=== PATIENT | male | born 1980 | race African-American/Black ===

== ENCOUNTER 2017-09-06 09:17 | Emergency (ER) | payer OTHER ==
[~2017-09-06] VITALS: Ht 185.4 cm; Wt 81.7 kg
[~2017-09-06 09:17] MED LIST: ANALPRAM E 2.51 EAC1 RC; FISH OIL 1,001000 M2 PO; FLEXERIL PO; IBUPROFEN 800800 M1 PO; NOHOMEMEDICATIONS
[2017-09-06 09:53] LABS: INFLUENZA A ANTIGEN None Detected (None Detect); INFLUENZA B ANTIGEN None Detected (None Detect)
[2017-09-06] MEDS ORDERED: TRAMADOL 50 MG50 MG PO (09:59)
[2017-09-06] MEDS ORDERED: ZOFRAN4 MG PO (09:59)
[2017-09-06] MEDS ORDERED: TESSALON PERLE100 MG PO (09:59)
[2017-09-06 10:17] VITALS: BP 117/74
== END 2017-09-06 10:18 | disposition home or self-care (01) ==
LOC: M.ERS 09:17
PROVIDERS: Emergency Medicine
DX: B34.9 Viral infection, unspecified (principal); F17.210 Nicotine dependence, cigarettes, uncomplicated; Z88.0 Allergy status to penicillin

== ENCOUNTER 2019-08-08 11:45 | Emergency (ER) | payer OTHER ==
[~2019-08-08] VITALS: Ht 185.4 cm; Wt 88.5 kg
[~2019-08-08 11:45] MED LIST changes: +TESSALON PERLE100 MG PO; +TRAMADOL 50 MG50 MG PO; +ZOFRAN4 MG PO
[2019-08-08] MEDS ORDERED: LAMICTAL 25 MG25 MG PO (12:02)
[2019-08-08 12:48] LABS: ABSOLUTE BASOPHILS 0.1 thou/uL (0.0-0.2); ABSOLUTE EOSINOPHILS 0.1 thou/uL (0.0-0.7); ABSOLUTE MONOCYTES 0.5 thou/uL (0.0-1.2); ABSOLUTE NEUTROPHILS 1.6 thou/uL (1.6-8.1); BASOPHILS 1.3 %; EOSINOPHILS 3.3 %; HEMATOCRIT 46.7 % (42.0-52.0); HEMOGLOBIN 15.8 gm/dL (14.0-18.0); LYMPHOCYTES 46.2 %; MCH 30.2 pg (26.0-34.0); MCHC 33.9 g/dL (28.0-37.0); MCV 89.1 fL (80.0-100.0); MONOCYTES 11.4 %; MPV 7.4 fl. (7.2-11.1); NUCLEATED RBCS 0 /100WBC; PLATELET COUNT* 222 thou/uL (150-400); POLYS 37.8 %; RBC 5.25 mil/uL (4.50-6.00); RDW-CV 13.8 % (10.5-14.5); WBC 4.3 thou/uL (4.0-11.0)
[2019-08-08 12:59] LABS: CALCIUM 8.5 mg/dL (8.5-10.1); CREATININE 1.1 mg/dL (0.6-1.3); POTASSIUM 3.8 mmol/L (3.5-5.1)
[2019-08-08 13:03] LABS: ALBUMIN 3.7 g/dL (3.4-5.0); TOTAL BILIRUBIN 0.3 mg/dL (<0.1-1.0)
[2019-08-08 14:19] VITALS: BP 139/71
--- NOTE | 2019-08-08 15:03 | EKG ---
[place] [address] ELECTROCARDIOGRAM REPORT Name: DAMIEN MOTT [id number] Admission: 08/08/19 Attend Phys: Discharge: 08/08/19 Date of : 80 Report #: [id number] THIS REPORT FOR: //name// [facility] ED Test Date: 2019-08-08 Test Time: 12:41:59 Pat Name: DAMIEN MOTT Department: Room: Gender: M Health Information Director: SULEMA : 1980 Requested By: Silvestre Cortes Order Number: [id number] MD: Donnie Harris Measurements Intervals [place] Rate: 59 P: 18 CT: 145 QRS: 27 QRSD: 107 T: 60 QT: 399 QTc: 396 Interpretive Statements Sinus rhythm septal q waves noted ST elev, probable normal early repol pattern Compared to ECG 09/22/2012 12:34:31 no change Electronically Signed On 08-08-2019 15:03:00 [employer]ODUCT DESIGN ENGINEER by Donnie Harris [email or web address] <ELECTRONICALLY SIGNED> By: Donnie Harris MD, [facility] 08/08/19 1503 [id number] 1241 Donnie Harris MD, FACC /EPI
== END 2019-08-08 14:20 | disposition home or self-care (01) ==
LOC: M.ERS 11:45
PROVIDERS: Emergency Medicine Emergency Medical Services
DX: R42 Dizziness and giddiness (principal); F17.210 Nicotine dependence, cigarettes, uncomplicated; Z88.0 Allergy status to penicillin